=== PATIENT | male | born 1965 | race Two or more races ===

== ENCOUNTER 2017-11-28 12:49 | Emergency (ER) | payer BC, OTHER ==
[~2017-11-28] VITALS: Ht 175.3 cm; Wt 99.8 kg
[2017-11-28 12:49] VITALS: BP 131/71
== END 2017-11-28 14:02 | disposition home or self-care (01) ==
LOC: ER 12:54
DX: M25.512 Pain in left shoulder (principal); M54.2 Cervicalgia; G89.29 Other chronic pain; C80.1 Malignant (primary) neoplasm, unspecified; F17.200 Nicotine dependence, unspecified, uncomplicated; Z60.2 Problems related to living alone
CPT/HCPCS: 71045-TC; 73030-TC; A4606; Z7610